=== PATIENT | female | born 1985 | race Caucasian/White ===

== ENCOUNTER 2016-05-11 10:44 | Inpatient (IN) | payer BC ==
[~2016-05-11 10:44] MED LIST: CEFAZOLIN 1 GM in D5W 100 ML IV SCH; CEFAZOLIN 2 GM/50 ML IV ONE; DEXTROSE IV ONE; SODIUM CHLORIDE 0.9% 3 ML FLUSH FLUSH SCH
[2016-05-11] MEDS ORDERED: ZOLPIDEM TARTRATE 5 MG TAB PO PRN (16:19)
[2016-05-11] MEDS ORDERED: BUTORPHANOL 1 MG/ML VIAL IV PRN (16:37)
[2016-05-11] MEDS ORDERED: ACETAMINOPHEN 325 MG/TAB TABLET PO PRN (16:37)
[2016-05-11] MEDS ORDERED: Aluminum;Magnesium;Simethicone 30 ML UDC PO PRN (16:37)
[2016-05-11] MEDS ORDERED: FLEET 4.5 OZ ENEMA PR PRN (16:37)
[2016-05-11] MEDS ORDERED: SODIUM CHLORIDE 0.9% 3 ML FLUSH FLUSH PRN (16:37)
[2016-05-11] MEDS ORDERED: LR 500 ML IV PRN (16:38)
[2016-05-11] MEDS ORDERED: DINOPROSTONE 10 MG VAGINAL INSERT PV ONE (17:00)
[2016-05-11] MEDS ORDERED: OXYTOCIN 1,000 ML IV SCH (17:00)
[2016-05-11 17:03] VITALS: BMI 32.1
[2016-05-11] MEDS: LR 1,000 ML IV SCH (17:13)
[2016-05-11] MEDS: SODIUM CHLORIDE 0.9% 3 ML FLUSH FLUSH SCH ×2 (17:14→17:36)
--- NOTE | 2016-05-11 17:18 | HISTPHYS ---
- HISTORY OF PRESENT ILLNESS Age: 30 Estimated Due Date: 05/06/16 Gestational Age: 40 : 1 Para: 0 Patient Presents to:: Labor & Delivery Presents for:: Induction of Labor. Denies: Contractions, Decreased Movement, Leaking Fluid, Vaginal Bleeding Details: The patient presents for a scheduled post dates induction. Uncomplicated . Current : GBS +, HSV (on valtrex) - REVIEW OF SYSTEMS ROS Negative Except As Marked: Yes ROS Negative except as marked Pain: Reports: None - ALLERGIES Allergies Allergy/AdvReac Type Severity Reaction Status Date / Time Latex, Natural Rubber Allergy Hives* Verified 05/11/16 16:28 Penicillins Allergy Hives* Verified 05/11/16 16:28 - CURRENT MEDICATIONS Home Medication List Pnv No.122/Iron/Folic Acid [ Multi Tablet] 1 tab PO DAILY 05/11/16 [ History] Valacyclovir HCl [Valtrex] 500 mg PO BID 05/11/16 [History] - PAST MEDICAL HISTORY Reports: No Significant History - PAST SURGICAL HISTORY Reports: Appendectomy - FAMILY HISTORY Family History: Noncontributory - SOCIAL HISTORY Travel Outside of [place] in the Last 3 Months?: No Smoking Status: Never smoker - GENITOURINARY HISTORY HX : 1 Para: 0 Live Deliveries (# of pregnancies resulting in a live ): 0 - PHYSICAL EXAM Vital Signs:: Temperature: 97.5 F (05/11/16 16:31) HR: 96 (05/11/16 16:31) RR: 16 (05/11/16 16:31) BP: 115/75 (05/11/16 16:31) Pulse Ox: () GENERAL: Alert, Oriented, No Acute Distress CARDOVASCULAR/CHEST: Normal RESPIRATORY: Normal - CTA ABDOMEN: Bowel Sounds Present, Gravid, Soft Fundal Height (cm): 40 GENITOURINARY: Normal, VULVA & INTROITUS (normal with no masses, lesions, rashes , or swelling). negative: Lesions EXTERMITIES: Moves All Extremeties, Full ROM. negative: Pain/Tenderness, Defomities Dilation (cm): 0.5 Effacement (%): 50 Station: -3 Heart Rate: 140 Reactive Contractions: Irregular Membranes: Intact - ASSESSMENT (ACTIVE PROBLEMS) (1) Post term over 40 weeks Acute O48.0 - POST-TERM (2) GBS (group B Streptococcus carrier), +RV culture, currently Acute O99.820 - STREPTOCOCCUS B CARRIER STATE COMPLICATING (3) HSV-2 infection complicating Acute O98.519 - OTHER VIRAL DISEASES COMPLICATING , UNSP TRIMESTER; B00.9 - HERPESVIRAL INFECTION, UNSPECIFIED Comment/Plan: No visible lesions and no prodromal symptoms per patient - PLAN Admit, Cervidil (placed without difficulty), Consent, Monitoring, GBS Prophylaxis, Induction of Labor, Ice Chips, IV Hydration, Labs, Pain Management Other Plan: Risks/benefits reviewed, all questions answered.
[2016-05-11] MEDS: CEFAZOLIN 1 GM in D5W 100 ML IV SCH ×2 (17:21→17:22)
[2016-05-11 18:01] LABS: MPV 7.4 fL (7.4-10.4)
[2016-05-11 18:59] LABS: SEG NEUTROPHIL 63 % (45-76)
[2016-05-11] MEDS ORDERED: HYDROCORTISONE 1% CREAM 30 GM TUBE TOP PRN (23:05)
[2016-05-11] MEDS ORDERED: DIPHENHYDRAMINE 25 MG CAP PO ONE (23:06)
[2016-05-11] MEDS ORDERED: HYDROCORTISONE 1% CREAM 30 GM TUBE TOP SCH (23:10)
[2016-05-12] MEDS: LR 1,000 ML IV SCH ×4 (00:09→20:35)
[2016-05-12] MEDS ORDERED: LIDOCAINE 1% 30 ML VIAL (PRESERVATIVE FREE) ONE (05:26)
[2016-05-12] MEDS ORDERED: OXYTOCIN 1,000 ML IV SCH (06:00)
[2016-05-12] MEDS: Clindamycin 900 mg/D5W 50 ml 900 MG/50 ML IVB IV SCH ×2 (06:18→14:36)
[2016-05-12] MEDS: SODIUM CHLORIDE 0.9% 3 ML FLUSH FLUSH SCH (06:24)
--- NOTE | 2016-05-12 09:16 | OBGYNPROG ---
- Exam Vital Signs: Last Vital Signs Temp 97.7 F 05/12/16 06:23 Pulse 96 05/11/16 16:31 Resp 16 05/11/16 16:31 BP 115/75 05/11/16 16:31 Pulse Ox Monitor Mode: External(US) Heart Rate: 140's Reactive Contraction Pattern: Regular Contraction Frequency: q 2-4 min Vaginal Bleeding: Small Show Dilation (cm): 2 Effacement (%): 70 Station: -3 Membranes: AROM (copious clear fluid noted) Amniotic Fluid: Clear - Plan Continue High Dose Pitocin, Ice Chips, GBS Prophylaxis
[2016-05-12] MEDS ORDERED: FENTANYL 100 MCG/2 ML VIAL IV ONE (10:00)
[2016-05-12] MEDS ORDERED: LIDOCAINE 2% 10 ML (PRESERVATIVE FREE) VIAL INF ONE ×2 (10:00)
[2016-05-12] MEDS ORDERED: SUCCINYLCHOLINE 20 MG/1 ML INJ 10 ML MDV IV ONE (10:00)
[2016-05-12] MEDS ORDERED: OXYTOCIN 10 UNITS/ML VIAL IM ONE (10:00)
[2016-05-12] MEDS ORDERED: PROPOFOL 200 MG/20 ML VIAL IV ONE (10:00)
[2016-05-12] MEDS ORDERED: Fentanyl/Bupivacaine 100 ML EPI ONE (10:54)
--- NOTE | 2016-05-12 11:22 | OBGYNPROG ---
- Exam Vital Signs: Last Vital Signs Temp 97.7 F 05/12/16 06:23 Pulse 96 05/11/16 16:31 Resp 16 05/11/16 16:31 BP 115/75 05/11/16 16:31 Pulse Ox Monitor Mode: External(US) Heart Rate: 140's Moderate Variability Contraction Pattern: Regular Contraction Frequency: q 2 min Vaginal Bleeding: None Dilation (cm): 3 Effacement (%): 80 Station: -2 Membranes: AROM Amniotic Fluid: Clear - Plan Continue High Dose Pitocin pt very uncomfortable. desires epidural
[2016-05-12] MEDS ORDERED: DIPHENHYDRAMINE 50 MG/ML VIAL IV PRN (11:49)
[2016-05-12] MEDS ORDERED: EPHEDrine 50 MG/ML VIAL IV PRN (11:49)
[2016-05-12] MEDS ORDERED: ONDANSETRON HCL 4 MG/2 ML VIAL IV PRN ×3 (11:49→23:23)
[2016-05-12] MEDS ORDERED: LR 500 ML IV ONE (11:49)
[2016-05-12] MEDS ORDERED: METOCLOPRAMIDE 10 MG/2 ML VIAL IV PRN (11:49)
[2016-05-12] MEDS ORDERED: LR 500 ML IV PRN (11:49)
[2016-05-12] MEDS ORDERED: NALOXONE 0.4 MG/ML AMPULE IV PRN (11:49)
--- NOTE | 2016-05-12 11:50 | HIM.ANES ---
Anesthesia Evaluation & Plan - Focused Review of Systems Cardiac History: No: Hx Cardiac Disorders HEENT: Yes: Hx Hearing Impairment (RIGHT), Hx Ear Problem (CHRONIC EAR INFECTION RIGHT), Other HEENT Problems Neurological/Musculoskeletal: No: Hx Neurological Disorders Psychological: No Hx Mental/Emotional Disorders Blood/Autoimmune: Yes: Hx Blood Transfusions (2009) Smoking Status: Never smoker Surgical History: Yes: Appendectomy (1998), Knee (2009) - Focused Physical Exam Mallampati: Class II Thyromental Distance: Greater than 3 Neck: Full Range of Motion Dental: Normal - no significant findings Cardiovascular/Chest: Normal Respiratory: Lungs clear Any problems with anesthesia, including nausea and vomiting?: No Any relatives with a history of Malignant Hyperthermia?: No Other: Problem List Problem Status Onset GBS (group B Streptococcus carrier), +RV culture, currently Acute HSV-2 infection complicating Acute Post term over 40 weeks Acute CBC/BMP/Other 05/11/16 17:30 Allergies Allergy/AdvReac Type Severity Reaction Status Date / Time Latex, Natural Rubber Allergy Hives* Verified 05/11/16 16:28 Penicillins Allergy Hives* Verified 05/11/16 16:28 Home Medications Medication Instructions Recorded Last Taken Type Pnv No.122/Iron/Folic Acid 1 tab PO DAILY 05/11/16 05/10/16 History [ Multi Tablet] Valacyclovir HCl [Valtrex] 500 mg PO BID 05/11/16 05/11/16 History Height and Weight Patient's height 5 ft 1 in Patient's weight 87.543 kg BMI 32.1 Vital Signs Temperature 97.5 F 05/12/16 09:39 Pulse Rate 96 05/11/16 16:31 Respiratory Rate 16 05/11/16 16:31 Blood Pressure 115/75 05/11/16 16:31 Pulse Oxygen Saturation - Anesthetic Plan Anesthesia Type: Epidural ASA Class: 2 -: I have examined this patient and reviewed the medical record. The patient has been assessed prior to anesthesia. Risks and benefits of anesthesia and anesthetic technique options have been discussed and all questions answered. The patient accepts the risk and desires me to proceed with the planned anesthetic.
--- NOTE | 2016-05-12 11:52 | HIM.ANESP ---
Procedure Note DATE OF PROCEDURE: 05/12/16 PREOPERATIVE DIAGNOSIS: Labor Pain Control. POSTOPERATIVE DIAGNOSIS: Same PROCEDURE: Epidural PERFORMING PROVIDER: Marc Camejo MD DIAGNOSIS: Labor SURGEON: [Brigido] TIME OUT: [1110] Anesthesia START time: [1111] Anesthesia STOP (Delivery) Time : MEDICATIONS: INF Bupivacaine 0.125% + Fentanyl 3mcg/ml ml/hr NEEDLE: Tuohy 17G STERILE BARRIERS: sterile x 3, mask, sterile gloves. APPROACH: [Midline] ATTEMPTS:[1] COMPLICATIONS: None. BLOOD LOSS: 0 cubic centimeters. PROCEDURE FINDINGS AND TECHNIQUE: At the request of the patient and site medical director , an Epidural Block was performed for labor pain relief. Epidural Risk, benefits and alternatives of the procedure were explained and questions answered. Informed consent was obtained, confirmed with patient and on chart. Time out was performed. Contraction, Pulse oximetry, EKG and BP monitoring were established. The patient is a [sitting] position and lumbar area was prepped and draped in a sterile manner. Skin anesthesia was obtained with 1% Xylocaine infiltration. The [Epidural was done in the usual manner. A Tuohy needle was inserted with loss of resistance to [NS][air] @ [7]cm. Local anesthetic was injected in incremental volumes with negative aspirations throughout, Bolus dose: Lidocaine [2] % [8] cc. There was no pain on injection. Epidural catheter threaded [5] cm into epidural space. Test dose Lidocaine 1.5 % with epinephrine 1:200,000, 3 ml via epidural catheter. Negative test dose. SaO2 [98]% EKG SR Loading Dose 0 mcg/ml Fentanyl Infusing Dose Bupivacaine 0.125% + Fentanyl 3mcg/ml ml/hr See Watch Child Record (chart) Patient tolerated the procedure well without complications.
[2016-05-12] MEDS ORDERED: Fentanyl/Bupivacaine 100 ML EPI SCH (12:00)
--- NOTE | 2016-05-12 14:51 | OBGYNPROG ---
- Exam Monitor Mode: External(US) Heart Rate: 130's Reactive Contraction Pattern: Regular Contraction Frequency: q 3 min Vaginal Bleeding: None Dilation (cm): 4.5 (per nursing) Effacement (%): 80 Station: -2 Membranes: AROM Amniotic Fluid: Clear - Plan Continue High Dose Pitocin
--- NOTE | 2016-05-12 16:25 | OBGYNPROG ---
- Exam Monitor Mode: External(US) Heart Rate: 130's reactive Reactive Contraction Pattern: Regular Contraction Frequency: q 2-3 Vaginal Bleeding: Small Show Dilation (cm): 5.5 Effacement (%): 90 Station: -2 Membranes: AROM Amniotic Fluid: Clear - Plan Continue High Dose Pitocin
--- NOTE | 2016-05-12 19:47 | OBGYNPROG ---
- Exam Monitor Mode: External(US) Heart Rate: 140's Reactive Contraction Pattern: Regular Contraction Frequency: q 2-4 min Vaginal Bleeding: Small Show Dilation (cm): 8.5 Effacement (%): 80 Station: -1 Membranes: AROM Amniotic Fluid: Clear - Plan Continue High Dose Pitocin will increase pitocin to max of 16 mu/min, reassess in 1 hour
--- NOTE | 2016-05-12 21:12 | OBGYNPROG ---
- Exam Monitor Mode: External(US) Heart Rate: 140's Reactive Contraction Pattern: Regular Contraction Frequency: q 3-4 min Vaginal Bleeding: Small Show Dilation (cm): 8.5 (no significant change) Effacement (%): 80 Station: -2 Membranes: AROM Amniotic Fluid: Clear cvx the same, slightly edematous cvx anterior and left lateral which will not reduce - Plan Section (d/c pitocin and proceed with primary section, pt and family agree with plan)
[2016-05-12] MEDS ORDERED: GENTAMICIN IV ONE (21:23)
[2016-05-12] MEDS ORDERED: LR 1,500 ML IV ONE (21:23)
[2016-05-12] MEDS ORDERED: [UNRECOGNIZED DRUG - OTHER] PO PRN (21:23)
[2016-05-12] MEDS ORDERED: NS IV ONE (21:23)
[2016-05-12] MEDS ORDERED: Clindamycin 900 mg/D5W 50 ml 900 MG/50 ML IVB IV ONE (21:23)
[2016-05-12] MEDS ORDERED: LR 1,000 ML IV SCH (22:00)
[2016-05-12] MEDS ORDERED: FENTANYL 100 MCG/2 ML VIAL ONE ×3 (22:27→23:26)
[2016-05-12] MEDS ORDERED: SODIUM CHLORIDE 0.9% 3 ML FLUSH FLUSH PRN (23:07)
[2016-05-12] MEDS ORDERED: LANOLIN OINTMENT 0.25 OZ TUBE TOP PRN (23:07)
[2016-05-12] MEDS ORDERED: OXYTOCIN 1,000 ML IV ONE (23:07)
[2016-05-12] MEDS ORDERED: ACETAMINOPHEN 325 MG/TAB TABLET PO PRN (23:07)
[2016-05-12] MEDS ORDERED: HYDROmorphone 50 ML IV PRN (23:07)
--- NOTE | 2016-05-12 23:12 | HIMOPRPT ---
DATE OF PROCEDURE: 05/12/16 PREOPERATIVE DIAGNOSIS: term IUP, failure to progress POSTOPERATIVE DIAGNOSIS: term IUP, failure to progress PROCEDURE: primary low transverse section SURGEON: Brigido ANESTHESIOLOGIST: Nell ANESTHESIA: general ESTIMATED BLOOD LOSS: 600 ml COMPLICATIONS: none DRAINS: veloz to gravity SPECIMENS: none INDICATIONS FOR PROCEDURE: lack of descent and cervical change, swelling of cervix DESCRIPTION OF PROCEDURE: DATE OF PROCEDURE: 05/12/16 PREOPERATIVE DIAGNOSIS: A [40.5]-week gestation POSTOPERATIVE DIAGNOSIS: A [40.5]-week gestation PROCEDURE: Primary low-transverse section. SURGEON: Cricket Fofana MD. ANESTHESIA: [general] COMPLICATIONS: None. ESTIMATED BLOOD LOSS: 500 mL. FINDINGS: Live-born [female] , Apgars [7] at 1, [9] at 5, [7] pounds [8] ounces. Clear fluid and intact placenta. Normal uterus, ovaries, and fallopian tubes bilaterally. PROCEDURE IN DETAIL: The patient was taken to the operating room where she was prepped and draped as a sterile field and then general anesthesia was achieved. A Veloz catheter had been previously placed. A Pfannenstiel incision was made 2 fingerbreadths above the pubic symphysis and carried down to the fascia sharply. The fascia was incised in midline with a scalpel and extended laterally with Ribeiro scissors. The fascia was dissected off the underlying rectus muscles sharply. The rectus muscles were . The peritoneum was isolated and entered. The peritoneal incision was extended superiorly and inferiorly with Metzenbaum scissors, bladder blade was placed. The peritoneum overlying the lower uterine segment was incised with Metzenbaum scissors to creat a bladder flap behind on which the bladder blade was placed. A 1 centimeter incision was made in lower uterine segment with a scalpel and extended laterally in a blunt fashion. The was delivered from the vertex presentation with the kiwi vacuum and suction on the maternal abdomen. The umbilical cord was clamped and cut. The baby was handed off to the awaiting lead burner supervisor. The placenta was manually delivered and the uterus was externalized. The uterine cavity was wiped clean with a lap pad and noted to be devoid of any retained placental fragments. The uterine incision was closed with a running locking #1-0 chromic suture and a second #1-0 imbricating running suture. The uterus was then returned to the abdomen and irrigated with copious amounts of sterile saline, hemostasis was noted to be adequate at that time. The rectus muscles and peritoneum were reapproximated using interrupted 2-0 vicryl sutures, but only after a wedge of interceed was placed over the uterine incision. The rectus fascia was closed with a running 0 Vicryl suture. Subcutaneous tissue was closed with running 2-0 vicryl suture. The skin incision was closed with mame. Once sponge and instrument counts were correct x3. The patient was taken to the [facility] in stable condition. The baby was also brought to the [facility]. UOP: 100 ml IVF: 1100 ml
--- NOTE | 2016-05-12 23:19 | OBDELNOTE ---
Delivery Note - Problem/Diagnosis (1) 40 weeks gestation of Status: Acute (2) Elective induction of labor planned Status: Acute (3) Failed induction of labor, delivered Status: Acute (4) Single live Status: Acute (5) Failure to progress in labor, delivered, current hospitalization Status: Acute (6) delivery, delivered, current hospitalization Status: Acute (7) GBS (group B Streptococcus carrier), +RV culture, currently Status: Acute - Admitting Diagnosis Reason for Visit: Induction of Labor Other Reason for Visit: CERVIDIL Admission Date: 05/11/16 Admission time: 16:35 Gestational Age: 40 - Procedures Procedure(s): None Labor Anesthesia/Analgesia: Epidural, General Anesthesia Date: 05/12/16 Time: 22:29 Delivery Presentation: Vertex Episiotomy: None : Primary Reason: Failure to Progress Skin Incision: Pfannenstiel Uterine Incision: Low Transverse Other Intrapartum Procedures: Vacuum Extraction Fluid: Clear Placenta: Manual Removal Description: Normal, Complete Cord: 3 Vessels. Denies: Nuchal Cord, True Knot - Procedures Procedures: None - Data Sex: Female Weight: 3.403 kg (1min): 7 (5min): 9 Feeding Plans for Infant: Breast Plans Circumcision: No Complications: No Complications to:: [facility]/Mother's Room - /Operative Complications /Op Complications: None Discharge Planning - REASON FOR ADMISSION Patient Presents to:: Labor & Delivery Reason for Visit: Induction of Labor Other Reason for Visit: CERVIDIL - HOSPITAL COURSE PROCEDURE: primary low transverse section - DISCHARGE INSTRUCTIONS
[2016-05-12] MEDS ORDERED: hydrALAZINE 20 MG/ML VIAL IV PRN (23:23)
[2016-05-12] MEDS ORDERED: FENTANYL 100 MCG/2 ML VIAL IV PRN ×2 (23:23)
[2016-05-12] MEDS ORDERED: ONDANSETRON HCL 4 MG ODT TAB PO PRN (23:23)
[2016-05-12] MEDS ORDERED: HYDROmorphone 1 MG INJECTION IV PRN ×2 (23:23)
[2016-05-12] MEDS ORDERED: MEPERIDINE 25 MG/ML TUBEX IV PRN (23:23)
[2016-05-12] MEDS ORDERED: LABETALOL 20 MG/4 ML SYRINGE IV PRN (23:23)
--- NOTE | 2016-05-12 23:23 | PCM.DCS92 ---
<Cricket Fofana - Last Filed: 05/13/16 01:07> - Primary/Secondary Discharge Diagnoses (1) 40 weeks gestation of Acute Z3A.40 - 40 WEEKS GESTATION OF (2) Elective induction of labor planned Acute [id number] - (3) Failed induction of labor, delivered Acute O61.9 - FAILED INDUCTION OF LABOR, UNSPECIFIED (4) Single live Acute Z37.0 - SINGLE LIVE (5) Failure to progress in labor, delivered, current hospitalization Acute O62.2 - OTHER UTERINE INERTIA (6) delivery, delivered, current hospitalization Acute O82 - ENCOUNTER FOR DELIVERY WITHOUT INDICATION (7) GBS (group B Streptococcus carrier), +RV culture, currently Acute O99.820 - STREPTOCOCCUS B CARRIER STATE COMPLICATING - HOSPITAL COURSE PROCEDURE: primary low transverse section /Op Complications: None - DISCHARGE INSTRUCTIONS Discharge Disposition: Home Discharge Condition: Good Cognitive Discharge Status: Unimpaired Fuctional Discharge Status: Independent Patient Leaving with Prescriptions?: Yes Home Medications/ New Prescriptions: New Ibuprofen Tablet [Motrin] 800 mg PO Q6-8H PRN #30 tab PRN Reason: Pain Oxycodone HCl/Acetaminophen [Percocet 5-325 mg Tablet] 1 - 2 tab PO Q4H PRN # 30 tab PRN Reason: Pain Continue Valacyclovir HCl [Valtrex] 500 mg PO BID Pnv No.122/Iron/Folic Acid [ Multi Tablet] 1 tab PO DAILY Referrals: Cricket Fofana MD [Staff Physician] - 06/25/16 9:15 am () - Diet Diet at Discharge: Regular - Activity Activity: No Heavy Lifting (2-3 weeks), Pelvic Rest (6-8 weeks) Do not lift more than_pounds: 25 For:: 2 weeks No Driving for: 2 weeks - Instructions Call Physician for: Foul Smelling Discharge, Pain/Redness in Calf/Leg, Increased Pain at Wound, Redness at Wound, Temperature Above 100.4, Drainiage from Wound Discontinue use of:: Alcohol, All Illegal Substances, All Types of Tobacco Additional Instructions: STAPLE REMOVAL ON THURSDAY, MAY 19, 2016 11:15 AM - Incision Incision, Lacerations, or Tears: Yes - DC Summary Notes Discharge Medications: *See "Discharge Medication List" for a complete list of Home Medications and Discharge Medications.* Obstetric Hospital Course - Admitting Diagnosis Reason for Visit: Induction of Labor Other Reason for Visit: CERVIDIL Admission Date: 05/11/16 Admission time: 16:35 Gestational Age: 40 - Procedures Procedure(s): None Labor Anesthesia/Analgesia: Epidural, General Anesthesia Date: 05/12/16 Time: 22:29 Delivery Presentation: Vertex Episiotomy: None : Primary Skin Incision: Pfannenstiel Uterine Incision: Low Transverse Fluid: Clear Placenta: Manual Removal Description: Normal, Complete Cord: 3 Vessels. Denies: Nuchal Cord, True Knot - Procedures Procedures: None - Infant Data Sex: Female Weight: 3.403 kg (1min): 7 (5min): 9 Feeding Plans for Infant: Breast Plans Circumcision: No Complications: No Complications to:: [facility]/Mother's Room - /Operative Complications /Op Complications: None <Kelin Bolivar - Last Filed: 05/15/16 08:58> - Primary/Secondary Discharge Diagnoses (1) care following delivery Acute Z39.2 - ENCOUNTER FOR ROUTINE FOLLOW-UP - Activity Do not lift more than_pounds: 15 No Driving for: 2 weeks - DC Summary Notes Discharge Medications: *See "Discharge Medication List" for a complete list of Home Medications and Discharge Medications.*
--- NOTE | 2016-05-12 23:24 | SC.ANESPOS ---
Post-Anesthesia Note LOC: Fully Awake Post-Anesthesia Assessment: Awake, Returned to Baseline, Hemodynamically Stable , Pain Control Adequate Phase I & II Recovery Complete: Yes Apparent Anesthesia Complication: No : N - Vital Signs Blood Pressure: 115/70 Pulse: 114 Resp Rate: 14 O2 Sat: 95 Temp: 99.9 F
[2016-05-12] MEDS ORDERED: Pharmacy Order Set Alert SCH (23:45)
[2016-05-12] MEDS ORDERED: IBUPROFEN 800 MG TAB PO SCH (23:45)
[2016-05-12] MEDS ORDERED: HYDROmorphone 50 ML IV ONE (23:47)
[2016-05-13] MEDS ORDERED: METHYLERGONOVINE 0.2 MG/ML AMPULE ONE (00:43)
[2016-05-13] MEDS ORDERED: MISOPROSTOL 100 MCG TAB PR ONE (00:49)
[2016-05-13] MEDS ORDERED: METHYLERGONOVINE 0.2 MG/ML AMPULE IM ONE (00:51)
[2016-05-13] MEDS ORDERED: METHYLERGONOVINE 0.2 MG TAB PO SCH ×2 (01:00→08:00)
--- NOTE | 2016-05-13 01:13 | OBGYNPROG ---
Note CTSP regarding heavy bleeding approx 1-2 hours after delivery. Per nursing there was poor uterine tone, but it returned with generous fundal massage which expressed a large clot and the addition of IM methergine and IV pitocin. Upon MD arrival, there was clot present on the padding, but no active hemorrhage. Uterus was firm and approx 1+ umbilicus. Cytotec was present, but was held due to improvement in bleeding. Pt was monitored 5-10 minutes with no resumption of bleeding. BP was 125/65 with pulse of 106. H&H Results 05/13/16 05/11/16 00:45 17:30 Hgb 10.9 L 11.2 L Hct 33.0 L 32.8 L Pt will receive oral methergine x 3 doses starting at 0230. Fundal massage will be continued and pt followed closely.
[2016-05-13] MEDS: IBUPROFEN 800 MG TAB PO SCH ×4 (02:35→21:19)
[2016-05-13] MEDS ORDERED: SODIUM CHLORIDE 0.9% 3 ML FLUSH FLUSH SCH ×2 (06:00→18:00)
[2016-05-13] MEDS ORDERED: LR 1,000 ML IV SCH (06:07)
[2016-05-13] MEDS: METHYLERGONOVINE 0.2 MG TAB PO SCH ×2 (08:54→13:49)
[2016-05-13] MEDS ORDERED: SODIUM CHLORIDE 0.9% 3 ML FLUSH FLUSH PRN (11:24)
--- NOTE | 2016-05-13 11:26 | OBGYNPROG ---
- Subjective Post Day: 1 Post Op Day: 1 Reports: Tolerating Liquid Diet. Denies: Complaints Pain: Reports: Well Managed, Incision - Objective Vital Signs: Temperature: 97.5 F (05/13/16 11:00) HR: 112 (05/13/16 11:00) RR: 20 (05/13/16 11:00) BP: 117/74 (05/13/16 11:00) Pulse Ox: 96 (05/12/16 23:42) Laboratory Results - last 24 hr 05/13/16 05/13/16 00:45 06:30 Hgb 10.9 L 9.4 L D Hct 33.0 L 28.3 L General: Alert, Oriented, No Acute Distress HEENT: Normal Cardiovascular/Chest: Normal Respiratory: Normal - CTA ABDOMEN: Soft Abdominal Incision: Incision Clean/Dry/Intact MUSCULOSKELETAL: Normal EXTERMITIES: Moves All Extremeties, Edema OBGYN Progress Note - PLAN Routine Care, Advance Diet, Ambulate, Discontinue Indwelling Catheter , Discontinue COLD ROLLER
[2016-05-13] MEDS: OXYCODONE HCL 5 MG TABLET PO PRN ×3 (13:49→22:43)
[2016-05-14] MEDS: IBUPROFEN 800 MG TAB PO SCH ×4 (02:26→20:35)
[2016-05-14] MEDS: OXYCODONE HCL 5 MG TABLET PO PRN ×3 (02:27→20:36)
[2016-05-14 07:18] LABS: AUTOMATED BASOPHIL 0.2 % (0-2); AUTOMATED EOSINOPHIL 3.6 % (0-5); AUTOMATED LYMPH 17.7 % (17-44); AUTOMATED MONOCYTE 8.9 % (3-10); AUTOMATED NEUTROPHIL 69.6 % (45-76); MPV 7.2 fL (7.4-10.4)
--- NOTE | 2016-05-14 08:26 | OBGYNPROG ---
- Subjective Post Op Day: 2 Reports: Tolerating Regular Diet, Voiding Freely, Moderate Lochia, Dizziness ( Yesterday, has not been out of bed today) Pain: Reports: Well Managed - Objective Vital Signs: Temperature: 98.5 F (05/14/16 05:41) HR: 89 (05/14/16 05:41) RR: 16 (05/14/16 05:41) BP: 97/51 (05/14/16 05:41) Pulse Ox: 96 (05/12/16 23:42) General: Alert, Oriented, No Acute Distress Cardiovascular/Chest: Normal, Tachycardia. negative: Irregular Respiratory: Normal - CTA. negative: Rales, Rhonchi, Wheezes ABDOMEN: Bowel Sounds Present, Non-Distended, Soft, Tender (Appropriately) Abdominal Incision: Incision Clean/Dry/Intact Fundus: At Umbilicus, Firm Lochia: Moderate EXTERMITIES: Moves All Extremeties. Denies: Pain/Tenderness OBGYN Progress Note - ASSESSMENT (1) Anemia Status: Acute Code(s): D64.9 - ANEMIA, UNSPECIFIED Qualifiers: Anemia type: iron deficiency Iron deficiency anemia type: other iron deficiency Vitamin B12 deficiency anemia type: V Folate deficiency anemia type: F Bone marrow failure anemia type: B Hemolytic anemia type: H Other causes of anemia: O Qualified Code(s): D50.8 - Other iron deficiency anemias Comment: Due to acute intraopertative loss, bleeding now normal. Pt symptomatic and tachycardic yesterday (2) delivery, delivered, current hospitalization Status: Acute Code(s): O82 - ENCOUNTER FOR DELIVERY WITHOUT INDICATION - PLAN Continue Present Management, Repeat Labs (Pt and FOB told the indications and risk for transfusion)
[2016-05-14 12:35] LABS: AUTOMATED BASOPHIL 0.4 % (0-2); AUTOMATED EOSINOPHIL 3.3 % (0-5); AUTOMATED LYMPH 14.6 % (17-44); AUTOMATED MONOCYTE 7.9 % (3-10); AUTOMATED NEUTROPHIL 73.8 % (45-76)
--- NOTE | 2016-05-14 12:56 | OBGYNPROG ---
- Subjective Post Op Day: 2 Reports: Voiding Freely, Moderate Lochia, Dizziness (Pt continues to have dizzyness with ambulation) Pain: Reports: Well Managed - Objective Vital Signs: Temperature: 98.5 F (05/14/16 05:41) HR: 120 (05/14/16 08:50) RR: 16 (05/14/16 05:41) BP: 99/66 (05/14/16 08:50) Pulse Ox: 96 (05/12/16 23:42) General: Alert, Oriented, No Acute Distress Cardiovascular/Chest: Normal, Tachycardia Respiratory: Normal - CTA Fundus: At Umbilicus, Firm Lochia: Moderate EXTERMITIES: Moves All Extremeties. Denies: Pain/Tenderness OBGYN Progress Note - ASSESSMENT (1) Anemia Status: Acute Code(s): D64.9 - ANEMIA, UNSPECIFIED Qualifiers: Anemia type: iron deficiency Iron deficiency anemia type: other iron deficiency Vitamin B12 deficiency anemia type: V Folate deficiency anemia type: F Bone marrow failure anemia type: B Hemolytic anemia type: H Other causes of anemia: O Qualified Code(s): D50.8 - Other iron deficiency anemias Comment: Discussed the dizzyness and risk of syncope. Pt mitchell requested transfusion Risks and benefits again reviewed. (2) delivery, delivered, current hospitalization Status: Acute Code(s): O82 - ENCOUNTER FOR DELIVERY WITHOUT INDICATION - PLAN Continue Present Management (Transfuse 2 units)
[2016-05-14] MEDS ORDERED: ACETAMINOPHEN 325 MG/TAB TABLET PO ONE (13:58)
[2016-05-14] MEDS ORDERED: DIPHENHYDRAMINE 25 MG CAP PO ONE (13:58)
[2016-05-15] MEDS: OXYCODONE HCL 5 MG TABLET PO PRN ×3 (00:12→10:45)
[2016-05-15] MEDS: IBUPROFEN 800 MG TAB PO SCH ×2 (02:09→08:41)
[2016-05-15 06:35] VITALS: BP 114/64; PULSE 96; TEMP 97.9
[2016-05-15 07:25] LABS: AUTOMATED BASOPHIL 0.4 % (0-2); AUTOMATED EOSINOPHIL 4.7 % (0-5); AUTOMATED LYMPH 19.5 % (17-44); AUTOMATED MONOCYTE 5.7 % (3-10); AUTOMATED NEUTROPHIL 69.7 % (45-76); MPV 7.3 fL (7.4-10.4)
--- NOTE | 2016-05-15 08:56 | OBGYNPROG ---
- Subjective Post Day: 3 Post Op Day: 3 Reports: Ambulating, Out of Bed, Tolerating Regular Diet, Voiding Freely, Passing Flatus, Moderate Lochia, Well (at times but has some concerns). Denies: Bowel Movement(s), Nausea, Vomitting, Chest Pain, Shortness of Breath Pain: Reports: Well Managed, Abdominal, Incision - Objective Vital Signs: Last Vital Signs Temp 97.9 F 05/15/16 06:33 Pulse 96 05/15/16 06:33 Resp 18 05/15/16 06:33 BP 114/64 05/15/16 06:33 Pulse Ox 96 05/12/16 23:42 General: Alert, Oriented, No Acute Distress ABDOMEN: Bowel Sounds Present, Non-Distended, Soft, Tender (mild) Abdominal Incision: Sam Intact. negative: Redness, Drainage, Ecchymotic Fundus: At Umbilicus, Firm Bladder: Voiding & Emptying EXTERMITIES: Edema (+2). Denies: Cyanosis, Clubbing OBGYN Progress Note Progress Note: Laboratory Results - last 24 hr 05/11/16 05/14/16 05/14/16 17:30 12:05 13:15 WBC 15.2 H RBC 2.53 L Hgb 7.8 L Hct 23.0 L MCV 91 MCH 30.7 MCHC 33.7 RDW 14.1 Plt Count 229 MPV 7.0 L Neut % (Auto) 73.8 Lymph % (Auto) 14.6 L [place] % (Auto) 7.9 Eos % (Auto) 3.3 Baso % (Auto) 0.4 Absolute Neuts (auto) 11.10 H Absolute Lymphs (auto) 2.13 Blood Type A POSITIVE A POSITIVE Antibody Screen Cancelled Negative Crossmatch See Detail See Detail 05/15/16 06:30 WBC 15.1 H RBC 3.00 L Hgb 9.1 L D Hct 27.1 L MCV 90 MCH 30.2 MCHC 33.4 RDW 15.1 H Plt Count 249 MPV 7.3 L Neut % (Auto) 69.7 Lymph % (Auto) 19.5 [place] % (Auto) 5.7 Eos % (Auto) 4.7 Baso % (Auto) 0.4 Absolute Neuts (auto) 10.42 H Absolute Lymphs (auto) 2.87 Blood Type Antibody Screen Crossmatch - ASSESSMENT (1) care following delivery Status: Acute Code(s): Z39.2 - ENCOUNTER FOR ROUTINE FOLLOW-UP - PLAN Routine Care, Discharge, Consult
== END 2016-05-15 13:25 | disposition home or self-care (01) | DRG 766 ==
LOC: MASU 16:16
PROVIDERS: ADMIT Obstetrics & Gynecology; ATTEND Obstetrics & Gynecology
PROC: 3E0P7GC Introduction of Other Therapeutic Substance into Female Reproductive, Via Natural or Artificial Opening (ICD-10-PCS; 2016-05-11)
PROC: 10907ZC Drainage of Amniotic Fluid, Therapeutic from Products of Conception, Via Natural or Artificial Opening (ICD-10-PCS; 2016-05-12)
PROC: 10D00Z1 Extraction of Products of Conception, Low, Open Approach (ICD-10-PCS; principal; 2016-05-12 22:10)
PROC: 30233N1 Transfusion of Nonautologous Red Blood Cells into Peripheral Vein, Percutaneous Approach (ICD-10-PCS; 2016-05-14)
DX: O98.52 Other viral diseases complicating childbirth (principal); B00.9 Herpesviral infection, unspecified; Z3A.40 40 weeks gestation of pregnancy; Z37.0 Single live birth; O99.824 Streptococcus B carrier state complicating childbirth; O48.0 Post-term pregnancy; O62.2 Other uterine inertia; O66.5 Attempted application of vacuum extractor and forceps; O61.0 Failed medical induction of labor; O90.81 Anemia of the puerperium; D50.8 Other iron deficiency anemias; O90.89 Other complications of the puerperium, not elsewhere classified; R00.0 Tachycardia, unspecified
CPT/HCPCS: 36430; 62318; 81002; 85007; 85014; 85018; 85025; 85027; 86592; 86850; 86900; 86901; 86920; 96360; 96361; 96365; 96366; 96368; 96372; 96375; J0330; J0595; J1170; J1580; J2001; J2210; J2590; J3010; J3490; J7030; P9016; S0077

== ENCOUNTER 2016-05-24 14:12 | Emergency (ER) | payer BC ==
[2016-05-24 14:23] VITALS: BMI 34.0
--- NOTE | 2016-05-24 15:22 | EDPRACDOC ---
<Rafael Raza - Last Filed: 05/24/16 17:56> - General Information Information Source: Patient - History of Present Illness Onset: THIS AM Wound Location: lower abdomen Wound Discharge: Purulent Previously Treated In: [place] [facility] Current Wound Treatment: Other (steristrips) Associated Signs and Symptoms: Pain, Local Redness Other History: C/O green yellow drainage and redness starting this am at site of incision from c section 05/12/16. C section was without complications, performed by Dr Fofana. Denies fever, but has been taking oxycodone with apap, as well as ibuprofen. Denies N/V/D, cp, sob, change in urine or BM, vaginal sx. Med hx = none. Surgical hx = 1 c section. <Bruno Poon - Last Filed: 05/24/16 20:12> - General Information Chief Complaint: Wound Stated Complaint: ? INFECTION FROM Home Medications: Home Medications Pnv No.122/Iron/Folic Acid [ Multi Tablet] 1 tab PO QHS 05/11/16 Oxycodone HCl/Acetaminophen [Percocet 5-325 mg Tablet] 1 - 2 tab PO Q4H PRN #30 tab 05/12/16 Clindamycin HCl 300 mg PO TID #30 capsule 05/24/16 Ibuprofen [Motrin Ib] 400 mg PO Q4-6H PRN 05/24/16 Oxycodone HCl/Acetaminophen [Percocet 5-325 mg Tablet] 1 each PO Q4 #20 tablet 05/24/16 Allergies/Adverse Reactions: Allergies Allergy/AdvReac Type Severity Reaction Status Date / Time Latex, Natural Rubber Allergy Hives* Verified 05/11/16 16:28 Penicillins Allergy Hives* Verified 05/11/16 16:28 - Treatment Prior to ED Arrival 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 Denies: Hysterectomy - Family Medical History Reports: Hypertension (FATHER), Diabetes (MOM), Cancer (GRANDFATHER, SM CELL, COLON , THROAT), Stroke (GRANDMOTHER), Cardiac Disorders (GRANDFATHER) - Social Medical History Smoking Status: Never smoker <Bruno Poon - Last Filed: 05/24/16 20:12> EDM Review of Systems - Review of Systems ROS Negative Except as Marked: Yes All systems reviewed and were negative except as marked Integumentary: Other (redness and drainage from surgical incision on lower abdomen) <Bruno Poon - Last Filed: 05/24/16 20:12> - Physical Exam Last recorded Vital Signs: Last Vital Signs Temp 98 F 05/24/16 14:18 Pulse 98 05/24/16 16:49 Resp 20 05/24/16 16:49 BP 115/69 05/24/16 16:49 Pulse Ox 96 05/24/16 16:49 Oxygen Pulse Oxygen Saturation 96 O2 Device Room Air Oxygen Flow Rate Fraction of Inspired Oxygen ( FIO2) <Rafael Raza - Last Filed: 05/24/16 17:56> - Physical Exam Constitutional: No apparent distress, Alert Oriented to: Time, Person, Place Last recorded Vital Signs: Last Vital Signs Temp 98 F 05/24/16 14:18 Pulse 105 05/24/16 14:18 Resp 18 05/24/16 14:18 BP 112/75 05/24/16 14:18 Pulse Ox 96 05/24/16 14:18 Oxygen Pulse Oxygen Saturation 96 O2 Device Room Air Oxygen Flow Rate Fraction of Inspired Oxygen ( FIO2) - HEENT Head: Normal Eye Exam: negative: Conjunctival Injection, Scleral Icterus Oropharynx: negative: Drooling TMJ: Normal Nose: No Symptoms Reported Neck: Normal - Respiratory/Cardiovascular Respiratory: Normal - CTA Cardiovascular: Normal - GI Auscultation: Normal Palpation: Normal Tenderness: Moderate, Other (redness, tenderness and drainge at lower abdomen at site of incision) - Musculoskeletal Back: Normal Extremities: Normal - Integumentary Skin: Normal - Neurologic Mood Description: Normal Thought: Coherent Perception: Normal <Bruno Poon - Last Filed: 05/24/16 20:12> ED Wound Check Exam - Wound Detail Wound Location: lower abdomen Healing: Tenderness Discharge: Green Erythema: Localized to Wound Edges <Bruno Poon - Last Filed: 05/24/16 20:12> - Results 05/24/16 15:00 05/24/16 15:00 WBC 15.6 xk/uL (3.8-10.8) H 05/24/16 15:00 RBC 3.61 xM/uL (4.20-5.40) L 05/24/16 15:00 Hgb 10.6 g/dL (12.0-16.0) L 05/24/16 15:00 Hct 32.1 % (36-47) L 05/24/16 15:00 MCV 89 fL (81-99) 05/24/16 15:00 MCH 29.5 pg (27-32) 05/24/16 15:00 MCHC 33.1 g/dl (33-36) 05/24/16 15:00 RDW 14.2 % (11.5-14.5) 05/24/16 15:00 Plt Count 498 xk/uL (130-400) H 05/24/16 15:00 MPV 6.3 fL (7.4-10.4) L 05/24/16 15:00 Neut % (Auto) 81.9 % (45-76) H 05/24/16 15:00 Lymph % (Auto) 11.1 % (17-44) L 05/24/16 15:00 [place] % (Auto) 4.5 % (3-10) 05/24/16 15:00 Eos % (Auto) 1.9 % (0-5) 05/24/16 15:00 Baso % (Auto) 0.6 % (0-2) 05/24/16 15:00 Absolute Neuts (auto) 12.64 xk/uL (1.7-8.2) H 05/24/16 15:00 Absolute Lymphs (auto) 1.72 xk/uL (0.65-4.75) 05/24/16 15:00 Sodium 140 mEq/L (137-146) 05/24/16 15:00 Potassium 4.1 mEq/L (3.5-5.1) 05/24/16 15:00 Chloride 104 mEq/L (98-107) 05/24/16 15:00 Carbon Dioxide 25 mMOL/L (22-33) 05/24/16 15:00 Anion Gap 15 mEq/L (8-16) 05/24/16 15:00 BUN 11 MG/DL (7-17) 05/24/16 15:00 Creatinine 0.50 MG/DL (0.52-1.04) L 05/24/16 15:00 Estimated GFR (MDRD) > 60 mL/min (>=60) 05/24/16 15:00 Glucose 119 MG/DL (70-99) H 05/24/16 15:00 Calculated Osmolality 269 MOs/Kg (270-290) L 05/24/16 15:00 Lactic Acid 0.8 mEq/L (0.7-2.1) 05/24/16 15:00 Calcium 9.2 MG/DL (8.4-10.2) 05/24/16 15:00 Corrected Calcium 10.0 MG/DL (8.4-10.2) 05/24/16 15:00 Total Bilirubin 0.3 MG/DL (0.2-1.3) 05/24/16 15:00 AST 18 IU/L (14-36) 05/24/16 15:00 ALT 32 IU/L (9-52) 05/24/16 15:00 Alkaline Phosphatase 230 IU/L (38-126) H 05/24/16 15:00 Total Protein 6.7 G/DL (6.3-8.2) 05/24/16 15:00 Albumin 3.2 G/DL (3.5-5.0) L 05/24/16 15:00 Lab Results 05/24/16 05/24/16 05/24/16 15:00 15:00 15:00 WBC 15.6 H RBC 3.61 L Hgb 10.6 L Hct 32.1 L MCV 89 MCH 29.5 MCHC 33.1 RDW 14.2 Plt Count 498 H MPV 6.3 L Neut % (Auto) 81.9 H Lymph % (Auto) 11.1 L [place] % (Auto) 4.5 Eos % (Auto) 1.9 Baso % (Auto) 0.6 Absolute Neuts (auto) 12.64 H Absolute Lymphs (auto) 1.72 Sodium 140 Potassium 4.1 Chloride 104 Carbon Dioxide 25 Anion Gap 15 BUN 11 Creatinine 0.50 L Estimated GFR (MDRD) > 60 Glucose 119 H Calculated Osmolality 269 L Lactic Acid 0.8 Calcium 9.2 Corrected Calcium 10.0 Total Bilirubin 0.3 AST 18 ALT 32 Alkaline Phosphatase 230 H Total Protein 6.7 Albumin 3.2 L <Rafael Raza - Last Filed: 05/24/16 17:56> - Results 05/24/16 15:00 05/24/16 15:00 - Diagnostic Imaging Abdomen Image interpreted by: Radiologist EXAM: CT ABDOMEN AND PELVIS WITH CONTRAST TECHNIQUE: Multidetector CT imaging of the abdomen and pelvis was performed using the standard protocol following bolus administration of intravenous contrast. CONTRAST: 100 cc Isovue 370 IV COMPARISON: None. FINDINGS: Linear subsegmental atelectasis at the left base. Lung bases otherwise clear. Heart is normal size. Liver, gallbladder, spleen, pancreas, adrenals and kidneys are normal. 4.4 cm fluid collection noted along the anterior lower uterine segment region. Fluid collection in the right adnexal region measures 5.2 cm. Small amount of free fluid in the pelvis/cul-de-sac. Uterus is prominent compatible with post state. Appendix not definitively seen. Stomach, large and small bowel unremarkable. There is stranding within the subcutaneous soft tissues of the anterior lower pelvic wall. No focal fluid collection within the subcutaneous soft tissues. No acute bony abnormality. IMPRESSION: Fluid collections along the anterior aspect of the uterus and in the right adnexal region. These could reflect postoperative fluid collections such as hematoma or abscess. Small amount of free fluid in the cul-de-sac. Stranding in the subcutaneous soft tissues of the anterior lower pelvic wall, presumably postoperative. No focal fluid collection. Electronically Signed By: Feliciano Gifford M.D. On: 05/24/2016 17:02 <Bruno Poon - Last Filed: 05/24/16 20:12> Decision Time to Discharge: 17:53 - Departure Yes I personally saw and evaluated the patient. 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122/Iron/Folic Acid [ Multi Tablet] 1 tab PO QHS Oxycodone HCl/Acetaminophen [Percocet 5-325 mg Tablet] 1 - 2 tab PO Q4H PRN # 30 tab PRN Reason: Pain Ibuprofen [Motrin Ib] 400 mg PO Q4-6H PRN PRN Reason: Pain Additional Instructions: PROCEED TO LABOR AND DELIVERY
[2016-05-24 15:33] LABS: AUTOMATED BASOPHIL 0.6 % (0-2); AUTOMATED EOSINOPHIL 1.9 % (0-5); AUTOMATED LYMPH 11.1 % (17-44); AUTOMATED MONOCYTE 4.5 % (3-10); AUTOMATED NEUTROPHIL 81.9 % (45-76); MPV 6.3 fL (7.4-10.4)
[2016-05-24 15:46] LABS: BLOOD UREA NITROGEN 11 MG/DL (7-17); CALCIUM 9.2 MG/DL (8.4-10.2); CALCULATED OSMOLALITY 269 MOs/Kg (270-290); CHLORIDE 104 mEq/L (98-107); GLUCOSE 119 MG/DL (70-99); SODIUM LEVEL 140 mEq/L (137-146); TOTAL PROTEIN 6.7 G/DL (6.3-8.2)
[2016-05-24] MEDS ORDERED: Pharmacy Review for Metformin - IV Contrast Given SCH (16:00)
--- NOTE | 2016-05-24 17:04 | DIRPT ---
CLINICAL DATA: Rolling drainage at surgical incision lower abdomen. Prior 05/13/2016. EXAM: CT ABDOMEN AND PELVIS WITH CONTRAST TECHNIQUE: Multidetector CT imaging of the abdomen and pelvis was performed using the standard protocol following bolus administration of intravenous contrast. CONTRAST: 100 cc Isovue 370 IV COMPARISON: None. FINDINGS: Linear subsegmental atelectasis at the left base. Lung bases otherwise clear. Heart is normal size. Liver, gallbladder, spleen, pancreas, adrenals and kidneys are normal. 4.4 cm fluid collection noted along the anterior lower uterine segment region. Fluid collection in the right adnexal region measures 5.2 cm. Small amount of free fluid in the pelvis/cul-de-sac. Uterus is prominent compatible with post state. Appendix not definitively seen. Stomach, large and small bowel unremarkable. There is stranding within the subcutaneous soft tissues of the anterior lower pelvic wall. No focal fluid collection within the subcutaneous soft tissues. No acute bony abnormality. IMPRESSION: Fluid collections along the anterior aspect of the uterus and in the right adnexal region. These could reflect postoperative fluid collections such as hematoma or abscess. Small amount of free fluid in the cul-de-sac. Stranding in the subcutaneous soft tissues of the anterior lower pelvic wall, presumably postoperative. No focal fluid collection. Electronically Signed By: Feliciano Gifford M.D. On: 05/24/2016 17:02
[2016-05-24 18:06] LABS: LEUKOCYTES/URINE 2+ (NEGATIVE); NITRITE/URINE NEG (NEGATIVE); RBC/URINE 30-40 (0-5); URINE OCCULT BLOOD 3+ (NEG/TRACE); WBC/URINE TNTC (0-5)
[2016-05-24 19:53] VITALS: BP 118/60; PULSE 112; TEMP 99.8
[2016-05-24] MEDS ORDERED: SODIUM CHLORIDE 0.9% 3 ML FLUSH FLUSH PRN (20:19)
[2016-05-24] MEDS ORDERED: DIPHENHYDRAMINE 25 MG CAP PO PRN (20:27)
[2016-05-24] MEDS ORDERED: OXYCODONE HCL 5 MG TABLET PO PRN (20:29)
[2016-05-24] MEDS ORDERED: ACETAMINOPHEN 325 MG/TAB TABLET PO PRN (20:30)
[2016-05-24] MEDS ORDERED: Vancomycin HCl 0 MG in D5W 500 ML IV SCH (20:33)
[2016-05-25] MEDS ORDERED: IBUPROFEN 800 MG TAB PO SCH
[2016-05-25] MEDS ORDERED: SODIUM CHLORIDE 0.9% 3 ML FLUSH FLUSH SCH (06:00)
== END 2016-05-24 19:50 | disposition home or self-care (01) ==
LOC: ED 14:12
DX: O86.0 Infection of obstetric surgical wound (principal)
CPT/HCPCS: 36415; 74177; 80053; 81001; 83605; 85025; 87070; 87075; 87077; 87186; 96365; 96366; 99283; A9698; J3370; J7060

== ENCOUNTER 2016-05-24 20:00 | Inpatient (IN) | payer BC ==
[2016-05-24 14:23] VITALS: BMI 34.0
--- NOTE | 2016-05-24 20:42 | HISTPHYS ---
- HISTORY OF PRESENT ILLNESS Age: 30 Patient Presents to:: Emergency Department Other Reason for Visit: erythema at wound site with leakage of fluid Details: Pt sent from ER with wound infection and drainage. Her section was done 05/12/16 for failure to progress. Her mame were removed the following Thursday. There was no wound breakdown at this time. Pt denies any fever. She noted a brief episode of chills on Thursday and . She denies n/v, dysuria or any issue voiding. She continue to note flatus. Pt denies any erythema or drainage until today at noon. - REVIEW OF SYSTEMS Reports/Denies: Reports: Leaking Fluid (from incision), Other (mild incisional pain) Pain: Reports: Incision - ALLERGIES Allergies Allergy/AdvReac Type Severity Reaction Status Date / Time Latex, Natural Rubber Allergy Hives* Verified 05/11/16 16:28 Penicillins Allergy Hives* Verified 05/11/16 16:28 - PAST MEDICAL HISTORY Reports: No Significant History - PAST SURGICAL HISTORY Reports: Section, Appendectomy - SOCIAL HISTORY Smoking Status: Never smoker - PHYSICAL EXAM Vital Signs:: Temperature: () HR: () RR: () BP: () Pulse Ox: () Last Vital Signs Temp 99.1 F 05/24/16 20:00 Pulse 100 05/24/16 20:00 Resp 18 05/24/16 20:00 BP 122/67 05/24/16 20:00 Pulse Ox EXAM: CT ABDOMEN AND PELVIS WITH CONTRAST TECHNIQUE: Multidetector CT imaging of the abdomen and pelvis was performed using the standard protocol following bolus administration of intravenous contrast. CONTRAST: 100 cc Isovue 370 IV COMPARISON: None. FINDINGS: Linear subsegmental atelectasis at the left base. Lung bases otherwise clear. Heart is normal size. Liver, gallbladder, spleen, pancreas, adrenals and kidneys are normal. 4.4 cm fluid collection noted along the anterior lower uterine segment region. Fluid collection in the right adnexal region measures 5.2 cm. Small amount of free fluid in the pelvis/cul-de-sac. Uterus is prominent compatible with post state. Appendix not definitively seen. Stomach, large and small bowel unremarkable. There is stranding within the subcutaneous soft tissues of the anterior lower pelvic wall. No focal fluid collection within the subcutaneous soft tissues. No acute bony abnormality. IMPRESSION: Fluid collections along the anterior aspect of the uterus and in the right adnexal region. These could reflect postoperative fluid collections such as hematoma or abscess. Small amount of free fluid in the cul-de-sac. Stranding in the subcutaneous soft tissues of the anterior lower pelvic wall, presumably postoperative. No focal fluid collection. GENERAL: Alert, Oriented, No Acute Distress HEENT: Normal CARDOVASCULAR/CHEST: Normal RESPIRATORY: Normal - CTA ABDOMEN: Non-Distended, Non-Tender, Obese, Soft MUSCULOSKELETAL: Normal EXTERMITIES: Moves All Extremeties NURA'S SIGN: negative: Bilateral - ASSESSMENT (ACTIVE PROBLEMS) (1) Postoperative infection Acute T81.4XXA - INFECTION FOLLOWING A PROCEDURE, INITIAL ENCOUNTER Present on Admission: Yes - PLAN Other Plan: awaiting organism ID from wound culture, supportive care and IV vancomycin 1-2 days
[2016-05-24] MEDS ORDERED: OXYCODONE HCL 5 MG TABLET PO PRN (20:45)
[2016-05-24] MEDS ORDERED: DIPHENHYDRAMINE 25 MG CAP PO PRN (20:47)
[2016-05-24] MEDS ORDERED: NS/KCl 20 mEq 1,000 ML IV SCH (21:00)
[2016-05-24] MEDS ORDERED: Vaccine Screening Complete SCH (23:00)
[2016-05-25] MEDS: IBUPROFEN 800 MG TAB PO SCH ×4 (00:34→17:40)
--- NOTE | 2016-05-25 11:09 | OBGYNPROG ---
- Subjective Hospital Day #: 1 Cheif Complaint: drainage from incision , postoperative infection Reports: Tolerating Regular Diet. Denies: Complaints, Nausea Pain: Reports: Incision (minimal burning pain on left portion of wound) - Objective Vital Signs: Vital Signs - 8 hr 05/25/16 05/25/16 05:59 10:32 Temperature 98.0 F 97.6 F Pulse Rate 75 81 Respiratory 18 16 Rate Blood Pressure 106/71 97/60 L GENERAL: Alert, Oriented, No Acute Distress HEENT: Normal ABDOMEN: Non-Distended, Non-Tender, Obese INCISION: Drainage (serous appearing fluid from 2 mm defect on the patient's left side, drainage apparent with light pressure, mild/moderate amount), Edges Approximated. negative: Redness, Ecchymotic MUSCULOSKELETAL: Normal EXTERMITIES: Moves All Extremeties OBGYN Progress Note - ASSESSMENT (1) Postoperative infection Status: Acute Code(s): T81.4XXA - INFECTION FOLLOWING A PROCEDURE, INITIAL ENCOUNTER Qualifiers: Encounter type: E - PLAN Continue Present Management continue IV antibiotics, check CBC in AM, awaiting ID of any potential organism in the wound with antibiotic susceptibility. Once known consider discharge home with appropriate po abx x 7 days
[2016-05-25] MEDS ORDERED: Vancomycin HCl 0 MG in D5W 500 ML IV SCH (20:48)
[2016-05-26] MEDS: IBUPROFEN 800 MG TAB PO SCH ×3 (00:06→12:19)
[2016-05-26 05:44] LABS: MPV 6.3 fL (7.4-10.4)
[2016-05-26 05:56] LABS: BLOOD UREA NITROGEN 10 MG/DL (7-17); CALCIUM 8.9 MG/DL (8.4-10.2); CALCULATED OSMOLALITY 267 MOs/Kg (270-290); CHLORIDE 108 mEq/L (98-107); GLUCOSE 74 MG/DL (70-99); SODIUM LEVEL 140 mEq/L (137-146)
[2016-05-26 07:53] LABS: SEG NEUTROPHIL 53 % (45-76); TOTAL CELL COUNT 100
[2016-05-26 10:12] VITALS: BP 106/58; PULSE 91; TEMP 98.5
--- NOTE | 2016-05-26 10:27 | OBGYNPROG ---
- Subjective Hospital Day #: 3 Cheif Complaint: Wound drainage Reports: Abdominal Cramping (Mild), Tolerating Regular Diet. Denies: Complaints Pain: Reports: Well Managed - Objective Vital Signs: Temperature: 98.5 F (05/26/16 10:11) HR: 91 (05/26/16 10:11) RR: 16 (05/26/16 10:11) BP: 106/58 (05/26/16 10:11) Pulse Ox: () GENERAL: Alert, Oriented, No Acute Distress ABDOMEN: Non-Distended, Soft, Tender (Appropriately) INCISION: Dressing Intact (dry), Drainage (small amount of clear serous drainage.), Edges Approximated. negative: Redness EXTERMITIES: Moves All Extremeties. negative: Pain/Tenderness OBGYN Progress Note - ASSESSMENT (1) Postoperative infection Status: Acute Code(s): T81.4XXA - INFECTION FOLLOWING A PROCEDURE, INITIAL ENCOUNTER Qualifiers: Encounter type: E Comment: No signs of cellulitis. White count normal, pt afebrile - PLAN Discharge (Continue on PO abx. Counseled on precautions and restrictions. Told to report any increased drainage, pain or fevers.)
--- NOTE | 2016-05-26 10:45 | PCM.DCS92 ---
- Primary/Secondary Discharge Diagnoses (1) Postoperative infection Acute T81.4XXA - INFECTION FOLLOWING A PROCEDURE, INITIAL ENCOUNTER Present on Admission: Yes initial encounter T81.4XXA - Infection following a procedure, initial encounter - HOSPITAL COURSE /Op Complications: None - DISCHARGE INSTRUCTIONS Discharge Disposition: Home Discharge Condition: Good Cognitive Discharge Status: Unimpaired Fuctional Discharge Status: Independent Patient Leaving with Prescriptions?: Yes Home Medications/ New Prescriptions: New Clindamycin [Cleocin] 150 mg PO BID #14 capsule Ibuprofen Tablet [Motrin] 800 mg PO Q6-8H PRN #30 tab PRN Reason: Pain Metronidazole [Flagyl] 500 mg PO BID #14 tab No Action Pnv No.122/Iron/Folic Acid [ Multi Tablet] 1 tab PO QHS Ibuprofen [Motrin Ib] 400 mg PO Q4-6H PRN PRN Reason: Pain Oxycodone HCl/Acetaminophen [Percocet 5-325 mg Tablet] 1 each PO Q6 - Diet Diet at Discharge: Regular - Activity Activity: No Heavy Lifting, Pelvic Rest, No Driving No Driving for: Until After Post op Follow-up Appointment - Instructions Call Physician for: Severe Abdominal Cramps, Foul Smelling Discharge (from the incision), Soaking Pad in 1 hr, Increased Pain at Wound, Redness at Wound, Temperature Above 100.4, Drainiage from Wound - Incision Incision, Lacerations, or Tears: Yes - DC Summary Notes Discharge Medications: *See "Discharge Medication List" for a complete list of Home Medications and Discharge Medications.* Obstetric Hospital Course - Admitting Diagnosis Other Reason for Visit: erythema at wound site with leakage of fluid Admission Date: 05/24/16 - Data Feeding Plans for Infant: Breast
== END 2016-05-26 13:03 | disposition home or self-care (01) | DRG 776 ==
LOC: MASU 20:00
PROVIDERS: ADMIT Obstetrics & Gynecology; ATTEND Obstetrics & Gynecology
DX: O86.0 Infection of obstetric surgical wound (principal)
CPT/HCPCS: 80048; 80202; 85007; 85027; 96365; 96366; J3370; J3490; J7040; J7070